=== PATIENT | male | born 1985 | race Caucasian/White ===

== ENCOUNTER 2020-03-07 10:04 | Outpatient (CLI) | payer OTHER, SELFPAY ==
--- NOTE | ~2020-03-07 | US_ITS ---
EXAMINATION: US soft tissue head and neck DATE: 03/07/2020 10:40 INDICATION: Papillary thyroid carcinoma status post thyroidectomy. TECHNIQUE: Multiple ultrasound images of the thyroid were obtained. COMPARISON: Neck CT 10/02/2019 FINDINGS: The thyroid is absent. In the right supraclavicular region, there is a 1.6 x 1.3 x 0.7 cm mixed cysti c and solid lymph node. IMPRESSION: 1. Mixed cystic and solid right supraclavicular lymph node, consistent with metastatic disease. Reviewed, dictated and finalized at location A. IMPRESSION: 1. Mixed cystic and solid right supraclavicular lymph node, consistent with met astatic disease.
== END 2020-03-07 10:05 | disposition home or self-care (01) ==
PROVIDERS: Family Provider Otolaryngology; PCP Internal Medicine; Visit Provider Internal Medicine Hematology & Oncology
DX: C73 Malignant neoplasm of thyroid gland (principal); R59.0 Localized enlarged lymph nodes
CPT/HCPCS: 76536

== ENCOUNTER 2020-03-18 10:49 | Outpatient (CLI) | payer OTHER, SELFPAY ==
--- NOTE | ~2020-03-18 | US_ITS ---
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 TECHNIQUE: The procedure including the risks and benefits was discussed with the patient. Risks discu ssed included bleeding and infection. The patient understood the risks and agreed to proceed. The sk in overlying the right supraclavicular lymph node of concern was prepped and draped in usual sterile fashion. Anesthetic was administered with 1% lidocaine subcutaneously. An 18 gauge core biopsy need le was advanced under continuous ultrasound observation to the lesion of interest. 3 core biopsy spe cimens were obtained. The needle was removed and the entry site was cleaned and dressed. Post proce dure ultrasound demonstrated no hemorrhage. FINDINGS: Ultrasound images demonstrate biopsy needle advanced through the 1.6 x 0.8 cm mixed solid a nd cystic lesion of concern. IMPRESSION: 1. Successful Ultrasound-guided biopsy of a 1.6 x 0.8 cm solid, centrally cystic nodule in the right supraclavicular region suspicious for a metastatic lymph node. Reviewed, dictated and finalized at location A. IMPRESSION: 1. Successful Ultrasound-guided biopsy of a 1.6 x 0.8 cm solid, centrally cysti c nodule in the right supraclavicular region suspicious for a metastatic lymph node.
== END 2020-03-18 10:50 | disposition home or self-care (01) ==
PROVIDERS: PCP Internal Medicine; Visit Provider Otolaryngology
DX: C73 Malignant neoplasm of thyroid gland (principal)
CPT/HCPCS: 38505; 76942; 88305

== ENCOUNTER 2020-09-19 09:14 | Outpatient (CLI) | payer OTHER, SELFPAY ==
--- NOTE | ~2020-09-19 | US_ITS ---
EXAMINATION: US soft tissue head and neck DATE: 09/19/2020 10:05 INDICATION: Status post thyroidectomy for papillary thyroid cancer TECHNIQUE: Multiple grayscale and Doppler ultrasound images of the neck were obtained. COMPARISON: None FINDINGS: Thyroid is nonvisualized consistent with history of prior thyroidectomy. No evident residual thyroid tissue, nodules or masses identified at the thyroid fossa. No pathologically enlarged cervical lympha denopathy, abnormal nodule/masses or fluid collections in the surrounding visualized neck. IMPRESSION: 1. Status post thyroid ectomy. No evident residual, recurrent or metastatic disease. 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 Status post thyroid ectomy. No evident residual, recurrent or metastatic dis ease.
== END 2020-09-19 09:15 | disposition home or self-care (01) ==
PROVIDERS: PCP Internal Medicine; Visit Provider Internal Medicine Hematology & Oncology
DX: C73 Malignant neoplasm of thyroid gland (principal)
CPT/HCPCS: 76536

== ENCOUNTER 2020-10-10 09:16 | Outpatient (CLI) | payer OTHER, SELFPAY ==
[2020-10-10 09:34] LABS: Basophils Percent Auto 0.6 % (0.2-1.2); Eosinophils Absolute Auto 0.4 K/mm3 (0-0.3); Hematocrit 43.8 % (42.0-52.0); Hemoglobin 15.1 g/dL (14.0-18.0); Immature Granulocyte Absolute 0.03 K/mm3 (0.00-0.031); Immature Granulocyte Percent A 0.4 % (0-0.5); Lymphocytes Absolute Auto 1.83 K/mm3 (0.9-3.2); Lymphocytes Percent Auto 25.5 % (18.3-44.2); Mean Corpuscular HGB Conc 34.5 g/dl (32-36); Mean Corpuscular Hemoglobin 30.9 pg (26-34); Mean Corpuscular Volume 89.8 fl (80-100); Mean Platelet Volume 8.7 fl (7.4-10.4); Monocytes Absolute Auto 0.5 K/mm3 (0.1-0.6); Monocytes Percent Auto 7.4 % (2.6-8.5); Neutrophils Absolute Auto 4.3 K/mm3 (1.3-6.7); Neutrophils Percent Auto 60.1 % (45.5-73.1); Platelet Count Result 321 k/mm3 (150-375); Red Blood Count 4.88 M/mm3 (4.6-6.20); Red Cell Distribution Width 12.7 % (11.5-14.5); White Blood Count 7.2 K/mm3 (4.5-10.0)
[2020-10-10 12:36] LABS: Alanine Aminotransferase 27 U/L (4-50); Albumin Level 4.5 g/dL (3.5-5.1); Alkaline Phosphatase 67 U/L (38-126); Anion Gap 8 mmol/L (8-16); Aspartate Amino Transferase 29 U/L (17-59); Bilirubin,Total 0.2 mg/dL (0.2-1.3); Blood Urea Nitrogen 14 mg/dL (9-20); Calcium 9.9 mg/dL (8.4-10.2); Carbon Dioxide 31 mmol/L (22-30); Chloride 100 mmol/L (98-107); Estimated Glomerular Filt Rate > 60; Glucose 97 mg/dL (75-110); Potassium 4.3 mmol/L (3.4-5.0); Sodium 139 mmol/L (137-145)
[2020-10-13 04:20] LABS: Thyroglobulin <0.1 ng/mL (2.8-40.9); Thyroglobulin Antibodies <1 IU/mL (<=1)
== END 2020-10-10 09:17 | disposition home or self-care (01) ==
PROVIDERS: PCP Internal Medicine; Visit Provider Internal Medicine Hematology & Oncology
DX: C73 Malignant neoplasm of thyroid gland (principal)
CPT/HCPCS: 36415; 80053; 84432; 85025; 86800

== ENCOUNTER 2021-04-18 10:55 | Outpatient (CLI) | payer BC, SELFPAY ==
[2021-04-18 11:26] LABS: Basophils Absolute Auto 0.1 K/mm3 (0.0-0.1); Basophils Percent Auto 0.8 % (0.2-1.2); Eosinophils Absolute Auto 0.3 K/mm3 (0-0.3); Eosinophils Percent Auto 5.3 % (0-4.4); Hematocrit 45.4 % (42.0-52.0); Hemoglobin 15.7 g/dL (14.0-18.0); Immature Granulocyte Absolute 0.02 K/mm3 (0.00-0.031); Immature Granulocyte Percent A 0.3 % (0-0.5); Lymphocytes Absolute Auto 1.96 K/mm3 (0.9-3.2); Lymphocytes Percent Auto 30.4 % (18.3-44.2); Mean Corpuscular HGB Conc 34.6 g/dl (32-36); Mean Corpuscular Volume 89.7 fl (80-100); Mean Platelet Volume 8.7 fl (7.4-10.4); Monocytes Absolute Auto 0.5 K/mm3 (0.1-0.6); Monocytes Percent Auto 8.2 % (2.6-8.5); Neutrophils Absolute Auto 3.5 K/mm3 (1.3-6.7); Platelet Count Result 320 k/mm3 (150-375); Red Blood Count 5.06 M/mm3 (4.6-6.20); Red Cell Distribution Width 12.4 % (11.5-14.5); White Blood Count 6.4 K/mm3 (4.5-10.0)
[2021-04-18 17:00] LABS: Alanine Aminotransferase 30 U/L (4-50); Albumin Level 4.7 g/dL (3.5-5.1); Alkaline Phosphatase 67 U/L (38-126); Anion Gap 11 mmol/L (8-16); Aspartate Amino Transferase 32 U/L (17-59); Bilirubin,Total 0.2 mg/dL (0.2-1.3); Blood Urea Nitrogen 12 mg/dL (9-20); Carbon Dioxide 29 mmol/L (22-30); Chloride 101 mmol/L (98-107); Estimated Glomerular Filt Rate > 60; Glucose 92 mg/dL (75-110); Potassium 4.4 mmol/L (3.4-5.0); Sodium 141 mmol/L (137-145)
[2021-04-18 17:31] LABS: Thyroid Stimulating Hormone 0.124 uIU/mL (0.465-4.680)
[2021-04-21 04:52] LABS: Thyroglobulin <0.1 ng/mL (2.8-40.9); Thyroglobulin Antibodies <1 IU/mL (<=1)
== END 2021-04-18 10:56 | disposition home or self-care (01) ==
PROVIDERS: PCP Internal Medicine; Visit Provider Internal Medicine Hematology & Oncology
DX: C73 Malignant neoplasm of thyroid gland (principal)
CPT/HCPCS: 36415; 80053; 84432; 84443; 85025; 86800

== ENCOUNTER 2021-10-16 15:48 | Outpatient (CLI) | payer BC, SELFPAY ==
[2021-10-16 16:01] LABS: Basophils Absolute Auto 0.1 K/mm3 (0.0-0.1); Basophils Percent Auto 0.7 % (0.2-1.2); Eosinophils Absolute Auto 0.4 K/mm3 (0-0.3); Eosinophils Percent Auto 4.7 % (0-4.4); Hematocrit 42.5 % (42.0-52.0); Hemoglobin 14.2 g/dL (14.0-18.0); Immature Granulocyte Absolute 0.05 K/mm3 (0.00-0.031); Immature Granulocyte Percent A 0.7 % (0-0.5); Lymphocytes Absolute Auto 1.97 K/mm3 (0.9-3.2); Mean Corpuscular HGB Conc 33.4 g/dl (32-36); Mean Corpuscular Hemoglobin 31.3 pg (26-34); Mean Corpuscular Volume 93.8 fl (80-100); Mean Platelet Volume 8.9 fl (7.4-10.4); Monocytes Absolute Auto 0.7 K/mm3 (0.1-0.6); Monocytes Percent Auto 9.6 % (2.6-8.5); Neutrophils Absolute Auto 4.4 K/mm3 (1.3-6.7); Neutrophils Percent Auto 58.3 % (45.5-73.1); Platelet Count Result 329 k/mm3 (150-375); Red Blood Count 4.53 M/mm3 (4.6-6.20); White Blood Count 7.6 K/mm3 (4.5-10.0)
[2021-10-16 16:55] LABS: Alanine Aminotransferase 53 U/L (4-50); Albumin Level 4.9 g/dL (3.5-5.1); Alkaline Phosphatase 72 U/L (38-126); Anion Gap 10 mmol/L (8-16); Aspartate Amino Transferase 52 U/L (17-59); Bilirubin,Total 0.4 mg/dL (0.2-1.3); Blood Urea Nitrogen 10 mg/dL (9-20); Calcium 9.8 mg/dL (8.4-10.2); Carbon Dioxide 30 mmol/L (22-30); Chloride 97 mmol/L (98-107); Estimated Glomerular Filt Rate > 60; Glucose 98 mg/dL (65-110); Sodium 137 mmol/L (137-145)
[2021-10-20 06:52] LABS: Thyroglobulin 0.1 ng/mL (2.8-40.9); Thyroglobulin Antibodies <1 IU/mL (<=1)
== END 2021-10-16 15:49 | disposition home or self-care (01) ==
LOC: ANHLAB 15:50
PROVIDERS: PCP Internal Medicine Hematology & Oncology; Visit Provider Internal Medicine Hematology & Oncology
DX: C73 Malignant neoplasm of thyroid gland (principal)
CPT/HCPCS: 36415; 80053; 84432; 84443; 85025; 86800

== ENCOUNTER 2021-10-16 16:12 | Outpatient (CLI) | payer BC, SELFPAY ==
--- NOTE | ~2021-10-16 | US_ITS ---
EXAMINATION: US soft tissue head and neck DATE: 10/16/2021 16:46 INDICATION: Papillary thyroid carcinoma post thyroidectomy TECHNIQUE: Multiple ultrasound images of the neck were obtained. COMPARISON: None. FINDINGS: Heart is not visualized consistent with history of prior thyroidectomy. No evident residual thyroid t issue, nodules or masses at the thyroid fossae. No pathologically enlarged lymphadenopathy along the bilateral jugular chains. IMPRESSION: 1. Status post thyroidectomy. No evident residual, recurrent or metastatic disease in the region of t he thyroid fossae. Reviewed, dictated and finalized at location B. 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 Status post thyroidectomy. No evident residual, recurrent or metastatic dise ase in the region of the thyroid fossae.
== END 2021-10-16 16:13 | disposition home or self-care (01) ==
LOC: ANHIMG 16:17
PROVIDERS: PCP Internal Medicine; Visit Provider Internal Medicine Hematology & Oncology
DX: C73 Malignant neoplasm of thyroid gland (principal)
CPT/HCPCS: 76536

== ENCOUNTER 2022-04-26 14:03 | Outpatient (CLI) | payer OTHER, SELFPAY ==
--- NOTE | ~2022-04-26 | US_ITS ---
EXAMINATION: US soft tissue head and neck DATE: 04/26/2022 15:21 INDICATION: Papillary thyroid carcinoma. TECHNIQUE: Multiple ultrasound images of the thyroid were obtained. COMPARISON: Ultrasound 10/16/2021, neck CT 10/02/2019 FINDINGS: There are changes of thyroidectomy. There is no abnormal tissue in the thyroidectomy bed. No lymphade nopathy. IMPRESSION: 1. Thyroidectomy. Reviewed, dictated and finalized at location B. IMPRESSION: 1. Thyroidectomy.
== END 2022-04-26 14:04 | disposition home or self-care (01) ==
PROVIDERS: PCP Internal Medicine; Visit Provider Internal Medicine Hematology & Oncology
DX: C73 Malignant neoplasm of thyroid gland (principal)
CPT/HCPCS: 76536

== ENCOUNTER → 2022-06-21 15:36 | Outpatient (CLI) | payer OTHER, SELFPAY ==
--- NOTE | ~2022-06-21 | US_ITS ---
US soft tissue head and neck 06/21/2022 16:19 Indication: Left neck swelling. History of Hodgkin's lymphoma. Status post bilateral thyroidectomy fo r papillary thyroid carcinoma. Procedure: High-resolution ultrasound of the neck and thyroid fossa. Comparison: No prior studies for comparison. Findings: No abnormality of the thyroid fossa seen. There are small bilateral normal appearing cervic al lymph nodes measuring up to 5 mm on the right and 1.2 cm on the left. No suspicious masses or flui d collections. Impression: 1: Normal bilateral cervical lymph nodes. No abnormality of the thyroid fossa. Reviewed, dictated and finalized at location A. Impression: 1: Normal bilateral cervical lymph nodes. No abnormality of the thyroid fossa.
== END ==
PROVIDERS: PCP Internal Medicine; Visit Provider Internal Medicine
DX: Z85.71 Personal history of Hodgkin lymphoma (principal)
CPT/HCPCS: 76536